=== PATIENT | male | born 1970 | race African-American/Black ===

== ENCOUNTER 2017-03-29 13:46 | Emergency (ER) | payer BC ==
[~2017-03-29] VITALS: Ht 190.5 cm; Wt 115.0 kg
[2017-03-29] MEDS ORDERED: ALBUTEROL/IPRATROPIUM 2.5MG/0.5MG, 3 ML NPPB ONE (15:00)
[2017-03-29] MEDS ORDERED: ALBUTEROL/IPRATROPIUM 2.5MG/0.5MG, 3 ML ONE (15:30)
[2017-03-29 16:23] VITALS: BP 195/126
== END 2017-03-29 16:26 | disposition home or self-care (01) ==
LOC: ED 16:15
DX: J98.01 Acute bronchospasm (principal); I10 Essential (primary) hypertension
CPT/HCPCS: 71046; 94640; 99284; J7512; J7620